=== PATIENT | female | born 2000 ===

== ENCOUNTER 2025-06-21 21:54 | Emergency (ER) | payer OTHER, SELFPAY ==
[2025-06-21 21:56] VITALS: BP 137/71
[2025-06-21 22:17] LABS: Hematocrit 37.2 % (37.0-47.0); Hemoglobin 12.6 g/dL (12.0-16.0); Mean Corp Hgb Conc. 33.9 g/dL (33.0-37.0); Mean Corpuscular Volume 80.2 fL (81.0-99.0); Nucleated Red Blood Cells % 0 %; Platelet Count 214 10^3/uL (130-400); Red Cell Dist. Width 12.9 % (11.5-14.5)
[2025-06-21 22:21] LABS: Urine Character Clear (Clear)
[2025-06-21 22:32] LABS: HCG, Serum Qualitative Screen Negative
[2025-06-21 22:37] LABS: ALT (SGPT) 93 U/L (0-35); AST (SGOT) 46 U/L (14-36); Albumin 4.5 g/dl (3.5-5.0); Alkaline Phosphatase 75 U/L (38-126); Blood Urea Nitrogen 13 mg/dl (7-17); Calcium 9.7 mg/dl (8.4-10.2); Carbon Dioxide 23 mmol/L (22-30); Chloride 106 mmol/L (98-107); Glucose 111 mg/dl (70-99); Potassium 4.2 mmol/L (3.5-5.1); Sodium 138 mmol/L (135-145); Total Protein 7.6 g/dl (6.3-8.2); eGFR > 60.00
--- NOTE | 2025-06-22 01:11 | ED.GENMED ---
History of Present Illness
General
Chief Complaint: Flank Pain
Source: patient
Exam Limitations: none
Time Seen by Provider: 06/21/25 23:51
Nursing documentation reviewed up to this point in time: agreed with
History of Present Illness
History of Present Illness:
Patient presents to ED secondary to persistent left flank/back pain over the past 1 week, with radiation to groin. Patient also reports dysuria and urinary frequency. Denies fever or chills. Denies trauma. Denies loss of sensation or weakness of
legs. Denies abdominal pain. Denies loss of appetite. Denies previous history of similar symptoms. Patient unsure if there is any family history of kidney stones.
Review of Systems
Review of Systems
Allergies reviewed?: Yes
All Other Systems: ROS reviewed and negative except as documented in HPI and ROS
Constitutional: Reports no symptoms
ABD/GI: Reports no symptoms; Denies abdominal pain, nausea or vomiting
: Reports dysuria, frequency and flank pain
Musculoskeletal: Reports back pain
Skin: Reports no symptoms
Neurological: Reports no symptoms
Phy Exam
Physical Exam
Physical Exam:
Physical Exam
General: no apparent distress, not acutely ill. afebrile.
Head: nc/at. eomi
Neck: supple. normal range of motion
Abdomen: normal bowel sounds. not tender.
Back: mild left lower back tenderness to palpation. negative straight leg raise test. no midline tenderness
Neuro: alert and oriented x 3. no focal neurological deficits
Skin: no rash
Psychiatric: well kept. interactive and cooperative
Extremities: no edema. no calf tenderness.
Course
Orders/Labs/Results
Orders:
Orders
06/21/25 22:00
Test Result ONCE
06/21/25 22:10
Complete Blood Count/With Diff Urgent
Comprehensive Metabolic Panel Urgent
HCG, Serum Qualitative Screen Urgent
Urinalysis Reflex To Culture Urgent
Date Specimen was Collected: 06/21/25
Time Specimen was Collected: 22:00
06/22/25 00:14
CT Abd/pel Without Iv Or Oral Urgent
Comment:
Reason For Exam: left flank pain
Abnormal Lab Results
06/21/25
22:10
MCV 80.2 L fL
(81.0-99.0)
MPV 10.5 H fL
(7.4-10.4)
Glucose 111 H mg/dl
(70-99)
AST 46 H U/L
(14-36)
ALT 93 H U/L
(0-35)
06/21/25 22:10
06/21/25 22:10
Vital Signs
Initial and Last Documented VS:
Initial Vital Signs
Temp Pulse Resp BP Pulse Ox
98.5 F 98 18 137/71 99
06/21/25 21:56 06/21/25 21:56 06/21/25 21:56 06/21/25 21:56 06/21/25 21:56
Last Documented Vital Signs
Temp Pulse Resp BP Pulse Ox
98.5 F 79 16 118/68 96
06/21/25 21:56 06/22/25 02:06 06/22/25 02:06 06/22/25 02:06 06/22/25 02:06
MDM/Problems Addressed
MDM/Problems Addressed:
CT report reviewed and discussed with patient. History and exam consistent with likely lower back pain, musculoskeletal etiology, as pain is reproducible on exam. Otherwise, patient juliana afebrile, hemodynamically stable, and nontoxic-appearing.
Patient will be advised to use Tylenol/Motrin for relief, along with warm compress application, as well as PCP follow-up as an outpatient. Advised to return to ED with worsening symptoms, i.e. fever/worsening pain/vomiting. Patient expresses
understanding at time of discharge.
*Pulse Oximetry
SaO2: 99
Patient hypoxic: no
*Critical Care Note
Total Time (30-74mins, 75-104mins- exclusive of procedures): Not Applicable
ED Attending Note
-
Portions of this chart may have been created with voice recognition software.� Occasional wrong word or��sound alike� substitutions may have occurred due to the inherent limitations of voice recognition software.
Discharge Plan
Departure
Patient Disposition: Home (Routine Discharge)
Date of Disposition: 06/22/25
Time of Disposition: 01:59
Patient with high blood pressure during this ER visit?: Yes
Discharge Problem:
Back pain
Instructions: Back Pain
Referrals:
Nery Hill MD [Primary Care Provider, Internal Medicine]
Activity Restrictions/Additional Instructions:
As discussed, please follow-up with your primary care physician for reevaluation. Please consider return to ED with worsening symptoms, i.e. fever/worsening pain/vomiting/inability to urinate
Interventions
Interventions:
*Risk Screen - Suicide Last Done: 06/21/25 21:59
*General Assessment Last Done: 06/21/25 21:59
*Neglect/Abuse Screening Last Done: 06/21/25 21:59
*ED- Fall Risk Assessment Last Done: 06/22/25 00:31
*ED COVID-19 Vaccine History Last Done: 06/22/25 00:32
*Nursing Disposition Last Done: 06/22/25 02:06
IO-Ubfzle-Zyovllhobl Assessment Last Done: 06/21/25 23:41
ED-Female Genitourinary Assessment Last Done: 06/21/25 23:45
Discharge Date and Time
Discharge Date/Time: 06/22/25 02:08
Print Language: SYRIAN
[2025-06-22 02:06] VITALS: BP 118/68
== END 2025-06-22 02:08 | disposition home or self-care (01) ==
LOC: EMR 21:54
PROVIDERS: Emergency Medicine; EMERGENCY PHYSICIAN Emergency Medicine; PRIMARYCARE PHYSICIAN Internal Medicine
DX: M54.9 Dorsalgia, unspecified (principal); R03.0 Elevated blood-pressure reading, without diagnosis of hypertension
CPT/HCPCS: 99284; 74176; 80053; 81003; 84703; 85025

== ENCOUNTER 2025-07-19 22:56 | Emergency (ER) | payer OTHER, SELFPAY ==
[2025-07-19 23:06] VITALS: BP 120/85
[2025-07-19 23:12] VITALS: BMI 34.8
[2025-07-20] VITALS: BP 117/65
--- NOTE | 2025-07-20 00:14 | ED.GENMED ---
History of Present Illness
General
Chief Complaint: Anxiety
Time Seen by Provider: 07/19/25 23:15
History of Present Illness
History of Present Illness:
25-year-old female without known past medical history presenting for intoxication. Patient arrives after she smoked an unknown substance with her . She is not sure what the substance was. Patient arrives with hallucinations and paranoia.
She is a somewhat limited historian. Denies any use of alcohol. Denies drug history. Denies chest pain or additional acute medical complaints
Phy Exam
Physical Exam
Physical Exam:
General: Well-appearing, no clinical signs of dehydration, nontoxic and in no acute distress
HEENT: protecting airway
Neck: appears supple
CV: Normal heart rate, regular rhythm
Resp: No accessory muscle use, no increased work of breathing, lungs clear to auscultation bilaterally
Abd: No distention
Extremities: No deformities, no swelling
Neuro: alert, no focal neurologic deficit
: deferred
Rectal: deferred
Psych: Paranoid
Skin: Intact
Course
Orders/Labs/Results
Orders:
Orders
07/19/25 23:14
Urine Drug Abuse Screen Urgent
Date Specimen was Collected: 07/19/25
Time Specimen was Collected: 23:14
07/20/25 00:12
Diazepam [Valium] 1 mg PO NOW STA
Vital Signs
Initial and Last Documented VS:
Initial Vital Signs
Temp Pulse Resp BP Pulse Ox
97.9 F 84 20 120/85 95
07/19/25 23:06 07/19/25 23:06 07/19/25 23:06 07/19/25 23:06 07/19/25 23:06
Last Documented Vital Signs
Temp Pulse Resp BP Pulse Ox
97.9 F 84 20 120/85 100
07/19/25 23:06 07/19/25 23:06 07/19/25 23:06 07/19/25 23:06 07/19/25 23:32
MDM/Problems Addressed
MDM/Problems Addressed:
25-year-old female presenting for intoxication after smoking unknown substance. Vital signs normal.
On exam patient resting comfortably, slightly paranoid, however no acute distress. Unremarkable examination. Patient is alert and oriented, does not appear to be a threat to herself or others. She does appear anxious, so we will administer
Ativan. Will continue to monitor with plan for discharge once clinically sober for safe disposition home.
*Pulse Oximetry
SaO2: 100
Oxygen Mode of Delivery: Room air
Patient hypoxic: no
*Critical Care Note
Total Time (30-74mins, 75-104mins- exclusive of procedures): Not Applicable
ED Attending Note
-
Portions of this chart may have been created with voice recognition software.� Occasional wrong word or��sound alike� substitutions may have occurred due to the inherent limitations of voice recognition software.
Discharge Plan
Departure
Referrals:
Nery Hill MD [Family Provider, Internal Medicine]
Interventions
Interventions:
*Risk Screen - Suicide Last Done: 07/19/25 23:06
*General Assessment Last Done: 07/19/25 23:06
*Neglect/Abuse Screening Last Done: 07/19/25 23:06
*ED- Fall Risk Assessment Last Done: 07/19/25 23:06
*ED COVID-19 Vaccine History Last Done: 07/19/25 23:06
ED-Psychological Assessment Last Done: 07/19/25 23:21
Discharge Date and Time
Print Language: [email or web address]
[2025-07-20] MEDS: VALIUM 1 MG PO (00:22)
[2025-07-20 01:00] VITALS: BP 111/55
[2025-07-20 02:00] VITALS: BP 110/58
== END 2025-07-20 03:11 | disposition home or self-care (01) ==
LOC: EMR 22:56
PROVIDERS: EMERGENCY PHYSICIAN Student in an Organized Health Care Education/Training Program; FAMILY PHYSICIAN Internal Medicine
DX: F19.129 Other psychoactive substance abuse with intoxication, unspecified (principal)
CPT/HCPCS: 99283